=== PATIENT | female | born 1965 | race Caucasian/White ===

== ENCOUNTER 2020-05-28 08:04 | Outpatient (CLI) | payer OTHER, SELFPAY ==
--- NOTE | ~2020-05-28 | MM_ITS ---
EXAMINATION: MM screening [facility]ber BI w gillian HISTORY: Screening mammogram TECHNIQUE: Craniocaudal and mediolateral oblique 3-D tomosynthesis images were obtained and synthetic 2-D images were generated. CAD analysis was submitted and interpreted. COMPARISON: 10/05/2018, 08/26/2017 and 06/13/2016 bilateral digital screening mammogram examinations BREAST PARENCHYMAL COMPOSITION: There are scattered areas of fibroglandular density. FINDINGS: There is no evidence of suspicious mass, calcification, or architectural distortion to sugg est malignancy in either breast. There has been no suspicious interval change. IMPRESSION: 1. No mammographic evidence of malignancy. 2. Recommend routine screening mammography in one year. BI-RADS Category 1: Negative Reviewed, dictated and finalized at location A.
== END 2020-05-28 08:05 | disposition home or self-care (01) ==
LOC: ANHIMG 08:06
PROVIDERS: PCP Family Medicine; Visit Provider Obstetrics & Gynecology
DX: Z12.31 Encounter for screening mammogram for malignant neoplasm of breast (principal)
CPT/HCPCS: 77063; 77067

== ENCOUNTER 2020-05-28 08:10 | Outpatient (CLI) | payer OTHER, SELFPAY ==
--- NOTE | ~2020-05-28 | DEXA_ITS ---
Bone Density Report Name: Mechelle Ray Age: 54 Sex: Female Ethnicity: White Date of : 1965 Indication: postmenopausal; parental hip fracture; Referring Provider: BrodieRajeev Study: Bone densitometry was performed. Exam Date: May 28, 2020 Accession number: [id number] Bone Density: Region BMD T-score Z-score Classification AP Spine (L1, L3, L4) 1.122 0.6 1.7 Normal Femoral Neck (Left) 0.899 0.5 1.5 Normal Total Hip (Left) 1.076 1.1 1.8 Normal Total Hip Bilateral Avg 1.144 1.7 2.4 Normal Femoral Neck (Right) 0.967 1.1 2.1 Normal Total Hip (Right) 1.210 2.2 2.9 Normal World Health Organization criteria for BMD impression classify patients as: Normal (T-score at or above -1.0), Osteopenia (T-score between -1.0 and -2.5), or Osteoporosis (T-score at or below -2.5). 10-year Fracture Risk: FRAX not reported because: All T-scores for Spine Total, Hip Total, Femoral Neck at or above -1.0 Clinical Information Provided by Patient: Parent has had a hip fracture Has used the following medications: Vitamin D Patient maximum height was 67 Menopause Age: 45 No regular weight bearing exercise Drinks caffeinated beverages Onset of menses at age 14 Number of children 3 Impression: The patient has normal bone mass. The patient has risk factors, including: parental hip fracture. Discussion: BONE DENSITY IS ABOVE THE MINIMUM DESIRABLE LEVEL AT ALL SKELETAL SITES TESTED. This patient?s bone mineral density is above the minimum desirable level (T-score -1.0 or better) at all sites measured. The patient should follow a healthful lifestyle (good nutrition with adequate calcium and vitamin D, and appropriate weight-bearing exercise). Follow-Up: Consider repeating this study in 5 years or sooner if there is some new clinical indication. Reported by: TERESA on 05/28/2020 8:43:00 AM. Reviewed, dictated and finalized at location ADenzel KIRK
== END 2020-05-28 08:11 | disposition home or self-care (01) ==
LOC: ANHIMG 08:11
PROVIDERS: PCP Family Medicine; Visit Provider Internal Medicine Endocrinology, Diabetes & Metabolism
DX: N95.1 Menopausal and female climacteric states (principal)
CPT/HCPCS: 77080

== ENCOUNTER → 2020-12-21 13:44 | Outpatient (CLI) | payer OTHER, SELFPAY ==
--- NOTE | ~2020-12-21 | XR_ITS ---
EXAMINATION: XR shoulder LT min 2V DATE: 12/21/2020 14:17 INDICATION: Left shoulder pain. TECHNIQUE: 4 views of left shoulder were obtained. COMPARISON: None. FINDINGS: Bone alignment is normal. No fracture. Glenohumeral joint is normal. There is mild acromioc lavicular joint osteoarthritis. IMPRESSION: 1. Mild left acromioclavicular joint osteoarthritis. Reviewed, dictated and finalized at location A. [facility]
== END ==
PROVIDERS: PCP Family Medicine; Visit Provider Nurse Practitioner Family
DX: M25.512 Pain in left shoulder (principal); S49.92XA Unspecified injury of left shoulder and upper arm, initial encounter; M19.012 Primary osteoarthritis, left shoulder
CPT/HCPCS: 73030

== ENCOUNTER 2020-12-25 09:58 | Outpatient (CLI) | payer OTHER, SELFPAY ==
--- NOTE | ~2020-12-25 | US_ITS ---
EXAMINATION: US venous doppler [facility] DATE: 12/25/2020 10:33 INDICATION: Lower limb swelling. TECHNIQUE: Grayscale ultrasound images without and with compression and Doppler ultrasound images of the bilateral lower extremity veins were obtained. COMPARISON: None. FINDINGS: The visualized portions of right common femoral vein, profunda (deep) femoral vein, femoral vein, pop liteal vein, posterior tibial veins, peroneal veins, gastrocnemius vein and greater saphenous vein ou tflow are patent. The visualized portions of left common femoral vein, profunda femoral vein, femoral vein, popliteal v ein, posterior tibial veins, peroneal veins, gastrocnemius vein and greater saphenous vein outflow ar e patent. IMPRESSION: 1. No deep venous thrombosis in either lower limb. Reviewed, dictated and finalized at location A. /ENDANGERED SPECIES SPECIALIST
== END 2020-12-25 09:59 | disposition home or self-care (01) ==
PROVIDERS: PCP Family Medicine; Visit Provider Nurse Practitioner Family
DX: M79.89 Other specified soft tissue disorders (principal)
CPT/HCPCS: 93970

== ENCOUNTER 2020-12-26 08:53 | Emergency (ER) | payer OTHER, SELFPAY ==
--- NOTE | ~2020-12-26 | XR_ITS ---
XR knee RT 3V DATE: 12/26/2020 09:48 INDICATION: Fall. Pain and bruising of right knee, ankle TECHNIQUE: 3 views COMPARISON: None FINDINGS: There is mild osteoarthritis involving primarily the medial and patellofemoral compartments . No fracture or dislocation or joint effusion. No periosteal reaction or bone destruction. No radiopaq ue interarticular loose body or chondrocalcinosis. IMPRESSION: Osteoarthritis No fracture, dislocation or joint effusion Reviewed, dictated and finalized at location A. ING RELOCATION
--- NOTE | ~2020-12-26 | XR_ITS ---
XR tibia fibula RT 2V DATE: 12/26/2020 09:48 INDICATION: Fall. Pain and bruising of right knee and ankle TECHNIQUE: AP and lateral views COMPARISON: None FINDINGS: Plantar calcaneal enthesopathy. No fracture, dislocation, periosteal reaction or bone destruction of the tibia or fibula. Normal alignment at the knee and ankle joints. IMPRESSION: No fracture or dislocation Plantar calcaneal enthesopathy Reviewed, dictated and finalized at location A. APEUTIC RADIOLOGIST
[2020-12-26 08:57] VITALS: BP 169/95; PULSE 100; RESP 20; TEMP 36.1; O2SAT 98
--- NOTE | 2020-12-26 09:10 | PC.NURSE ---
Note abrasion to right lateral knee, and right lower extremity noted with swelling, bruising in different stages of healing, reddened right calf, and bruising to right foot, inner aspect. Pt doesn't remember injury exactly but assumes it occurred from fall treated previously.
--- NOTE | 2020-12-26 09:14 | ED.LOWEXIN ---
HPI - Extremity Injury (Lower) General Chief Complaint: Extremity Injury, Lower Stated Complaint: fall 1 week ago, right leg pain Time Seen by Provider: 12/26/20 09:13 History of Present Illness HPI Narrative: 55 yo female presents to the ED for leg pain. She fell 1 week ago while moving furniture. SHe sustained a laceration to the forehead and a contusion to the right knee/thigh. She was seen at that time and had the laceration repaired. Since then she developed more swelling and pain in the right lower leg. Her PCP scheduled outpatient US, which was negative for DVT. She came in today, because the pain is worse. Related Data Home Medications Medication Instructions Recorded Confirmed methimazole 5 mg tablet 5 mg PO DAILY 04/10/20 10/12/20 Allergies Allergy/AdvReac Type Severity Reaction Status Date / Time amoxicillin Allergy Unknown Rash Verified 12/28/20 15:45 clavulanic acid AdvReac Mild Rash Verified 12/28/20 15:45 [From Augmentin] AMOXICILLIN TRIHYDRATE Allergy Severe Rash, Uncoded 12/28/20 15:45 ITCHING POTASSIUM CLAVULANATE Allergy Unknown Hives / Uncoded 12/28/20 15:45 Red Face Review of Systems Review of Systems: All systems reviewed & are unremarkable except as noted in HPI and below Constitutional: Constitutional: Denies chills, Denies fever(s) and Denies weakness Eyes: Eyes: Reports no additional eye complaints Cardiovascular: Cardiovascular: Denies chest pain Respiratory: Respiratory: Denies dyspnea Gastrointestinal: Gastrointestinal: Reports no additional gastrointestinal complaints Musculoskeletal: Musculoskeletal: Denies back pain Neurologic: Denies numbness and Denies weakness [facility] Past Medical History Medical History Asthma BMI 40.0-44.9, adult Diastolic dysfunction, left ventricle Dyslipidemia Fall (on) (from) unspecified stairs and steps, initial encounter History of hypertension Left shoulder pain Morbid (severe) obesity due to excess calories Suture reaction Thyroid disease Family History Family History Father Family history of elevated blood lipids Cerebrovascular accident Family history of gastrointestinal disorder Family history of dementia Mother Carcinoma of colon Patient's mother is Grandparent Family history of kidney disease Family history of congestive heart failure Family history of heart disease in male family member before age 55 Sibling No problems noted. 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[employer] Exam Const: General: no acute distress and alert Orientation/consciousness: patient oriented x3 HENMT: Other: Bruising and healing forehead laceration Eyes: Pupils: Equal, round and reactive pupils present EOM: EOMs intact bilaterally Chest: Chest palpation & inspection: normal inspection of the chest Resp: Effort & Inspection: normal respiratory effort Auscultation: clear to auscultation bilaterally Cardio: Rate: regular rate Rhythm: regular rhythm Skin: Other: Bruising to right lower leg Neuro: General: patient oriented x3, moves all extremities, no focal motor deficits and CN's II-XI intact bilaterally Speech: normal speech Gait exam (Neuro): Normal gait present Extrem: Other: Right ankle tenderness and edema. Compartments soft Course Vital Signs Vital signs: Vital Signs Temperature 36.1 C L 12/26/20 08:57 Pulse Rate 100 12/26/20 08:57 Respiratory Rate 20 12/26/20 08:57 Blood Pressure 169/95 H 12/26/20 08:57 Pulse Oximetry 98 12/26/20 08:5
== END 2020-12-26 11:04 | disposition home or self-care (01) ==
PROVIDERS: Emergency Provider Emergency Medicine; PCP Family Medicine
DX: S80.11XA Contusion of right lower leg, initial encounter (principal); J45.909 Unspecified asthma, uncomplicated; E78.5 Hyperlipidemia, unspecified; I10 Essential (primary) hypertension; E66.01 Morbid (severe) obesity due to excess calories; Z68.41 Body mass index [BMI] 40.0-44.9, adult; E07.9 Disorder of thyroid, unspecified; W18.30XA Fall on same level, unspecified, initial encounter
CPT/HCPCS: 73562; 73590; 99284

== ENCOUNTER 2021-01-04 10:50 | Outpatient (CLI) | payer OTHER, SELFPAY | END 2021-01-04 10:51 | disposition home or self-care (01) | LOC: ANHCOVIDVC 10:50 | PROVIDERS: PCP Family Medicine | DX: Z23 Encounter for immunization (principal) | CPT/HCPCS: 0001A; 91300 ==

== ENCOUNTER 2021-01-25 10:46 | Outpatient (CLI) | payer OTHER, SELFPAY | END 2021-01-25 10:47 | disposition home or self-care (01) | LOC: ANHCOVIDVC 10:46 | PROVIDERS: PCP Family Medicine | DX: Z23 Encounter for immunization (principal) | CPT/HCPCS: 0002A; 91300 ==

== ENCOUNTER 2021-07-31 08:01 | Outpatient (CLI) | payer OTHER, SELFPAY ==
--- NOTE | ~2021-07-31 | MM_ITS ---
EXAMINATION: MM screening [facility] BI w gillian HISTORY: Screening mammogram TECHNIQUE: Craniocaudal and mediolateral oblique 3-D tomosynthesis images were obtained and synthetic 2-D images were generated. CAD analysis was submitted and interpreted. COMPARISON: 05/28/2020, 10/05/2018, 08/26/2017 BREAST PARENCHYMAL COMPOSITION: There are scattered areas of fibroglandular density. FINDINGS: There is no evidence of suspicious mass, calcification, or architectural distortion to sugg est malignancy in either breast. There has been no suspicious interval change. IMPRESSION: 1. No mammographic evidence of malignancy. 2. Recommend routine screening mammography in one year. BI-RADS Category 1: Negative Reviewed, dictated and finalized at location A.
== END 2021-07-31 08:02 | disposition home or self-care (01) ==
PROVIDERS: PCP Family Medicine; Visit Provider Obstetrics & Gynecology
DX: Z12.31 Encounter for screening mammogram for malignant neoplasm of breast (principal)
CPT/HCPCS: 77063; 77067

== ENCOUNTER 2022-10-08 07:19 | Outpatient (CLI) | payer OTHER, SELFPAY ==
--- NOTE | ~2022-10-08 | MM_ITS ---
EXAMINATION: MM screening eber BI w gillian HISTORY: Screening TECHNIQUE: Craniocaudal and mediolateral oblique 3-D tomosynthesis images were obtained and synthetic 2-D images were generated. CAD analysis was submitted and interpreted. COMPARISON: Comparison to multiple prior studies sequentially, with oldest reviewed study dated 11/08. BREAST PARENCHYMAL COMPOSITION: There are scattered areas of fibroglandular density. FINDINGS: There is no evidence of suspicious mass, calcification, or architectural distortion to sugg est malignancy in either breast. There has been no suspicious interval change. IMPRESSION: 1. No mammographic evidence of malignancy. 2. Recommend routine screening mammography in one year. BI-RADS Category 1: Negative Reviewed, dictated and finalized at location B. EE FARMER
== END 2022-10-08 07:20 | disposition home or self-care (01) ==
PROVIDERS: PCP Family Medicine; Visit Provider Obstetrics & Gynecology
DX: Z12.31 Encounter for screening mammogram for malignant neoplasm of breast (principal)
CPT/HCPCS: 77063; 77067

== ENCOUNTER 2022-10-28 01:55 | Day surgery (SDC) | payer OTHER, SELFPAY ==
[2022-07-29 10:19] VITALS: BMI 40.2
[2022-10-19 09:06] VITALS: BMI 40.2
--- NOTE | 2022-10-27 14:08 | PM.HPGS ---
History of Present Illness History of Present Illness Consent: Risks, benefits, and alternatives have been discussed and questions answered. Patient agrees to proceed with procedure. Chief complaint: hx colon polyps, family hx colon ca Narrative: Mechelle Ray is a 57 year old female referred for colon cancer screening. She has had polyps removed in the past, to removed 3 years ago. She also has a family history of colon cancer. Review of Systems Review of Systems: All systems reviewed & are unremarkable except as noted in HPI and below PMFSH Past Medical History Medical History Asthma BMI 40.0-44.9, adult Diastolic dysfunction, left ventricle Dyslipidemia Fall (on) (from) unspecified stairs and steps, initial encounter History of hypertension Hypothyroidism Left shoulder pain Morbid (severe) obesity due to excess calories Serous otitis media Suture reaction Thyroid disease Family History Family History Father Family history of elevated blood lipids Cerebrovascular accident Family history of gastrointestinal disorder Family history of dementia Mother Carcinoma of colon Patient's mother is Grandparent Family history of kidney disease Family history of congestive heart failure Family history of heart disease in male family member before age 55 Sibling No problems noted. 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[employer] Gender identity (if verbalized by the patient): Female Sexual Orientation (if Verbalized by the Patient): Straight or Heterosexual Spiritual care concerns: No Agree to blood products: Yes Meds Home Medications and Allergies Home Medications Medication Instructions Recorded Confirmed Type methimazole 5 mg tablet 5 mg PO DAILY 04/10/20 07/29/22 History atorvastatin 20 mg tablet See Rx Instructions .Route 06/27/22 07/29/22 Rx .COMPLEX #90 tabs loratadine 10 mg tablet (Claritin) 10 mg PO DAILY 07/29/22 07/29/22 History losartan 50 mg-hydrochlorothiazide See Rx Instructions .Route 08/03/22 10/19/22 Rx 12.5 mg tablet .COMPLEX #90 tabs Allergies Allergy/AdvReac Type Severity Reaction Status Date / Time amoxicillin Allergy Unknown Rash Verified 10/28/22 08:21 clavulanic acid AdvReac Mild Rash Verified 10/28/22 08:21 [From Augmentin] AMOXICILLIN TRIHYDRATE Allergy Severe Rash, Uncoded 10/28/22 08:21 ITCHING POTASSIUM CLAVULANATE Allergy Unknown Hives / Uncoded 10/28/22 08:21 Red Face Exam Const: General: alert Orientation/consciousness: patient oriented x3 Resp: Auscultation: clear to auscultation bilaterally Cardio: Rhythm: regular rhythm GI: GI Palp: Yes Soft to palpation and No Tenderness to palpation present (GI) Neuro: General: patient oriented x3 Assessment and Plan Assessment and plan (1) Screening for colon cancer: Code(s): Z12.11 - Encounter for screening for malignant neoplasm of colon Status: Acute Assessment and Plan: Colonoscopy with possible biopsy or polypectomy or cautery or injection of substances.
[2022-10-28 08:22] VITALS: BP 148/91; PULSE 86; RESP 18; TEMP 36.1; O2SAT 97
[2022-10-28] MEDS: LACTATED RINGERS 1,000 ML 150 ML IV CONT (08:33)
--- NOTE | 2022-10-28 08:43 | WPDANESEPPF ---
Anes - Initial Pre Proc Eval Procedure: Operation Date: 10/28/22 09:30 Proposed Procedures p Screening Colonoscopy - Scot Guerra MD Date/Time: 10/28/22 08:43 Surgeon: Scot Guerra MD Pre Op Diagnosis: hx colon polyps, family hx colon ca Patient Data Age: 57 Gender: F Height: 1.73 m Weight: 119.9 kg Last Vital Signs Temp 36.1 C L 10/28/22 08:22 Pulse 86 10/28/22 08:22 Resp 18 10/28/22 08:22 BP 148/91 H 10/28/22 08:22 Pulse Ox 97 10/28/22 08:22 O2 Del Method Room Air 10/28/22 08:22 Allergies Allergy/AdvReac Type Severity Reaction Status Date / Time amoxicillin Allergy Unknown Rash Verified 10/28/22 08:21 clavulanic acid AdvReac Mild Rash Verified 10/28/22 08:21 [From Augmentin] AMOXICILLIN TRIHYDRATE Allergy Severe Rash, Uncoded 10/28/22 08:21 ITCHING POTASSIUM CLAVULANATE Allergy Unknown Hives / Uncoded 10/28/22 08:21 Red Face Home Medications Medication Instructions Recorded Confirmed Type methimazole 5 mg tablet 5 mg PO DAILY 04/10/20 07/29/22 History atorvastatin 20 mg tablet See Rx Instructions .Route 06/27/22 07/29/22 Rx .COMPLEX #90 tabs loratadine 10 mg tablet (Claritin) 10 mg PO DAILY 07/29/22 07/29/22 History losartan 50 mg-hydrochlorothiazide See Rx Instructions .Route 08/03/22 10/19/22 Rx 12.5 mg tablet .COMPLEX #90 tabs Patient hx anesthesia problems: none Family hx anesthesia problems: none Results Review: All pre-operative results and documents have been reviewed as part of the pre-operative evaluation. [facility] Past Medical History Medical History Asthma BMI 40.0-44.9, adult Diastolic dysfunction, left ventricle Dyslipidemia Fall (on) (from) unspecified stairs and steps, initial encounter History of hypertension Hypothyroidism Left shoulder pain Morbid (severe) obesity due to excess calories Serous otitis media Suture reaction Thyroid disease Family History Family History Father Family history of elevated blood lipids Cerebrovascular accident Family history of gastrointestinal disorder Family history of dementia Mother Carcinoma of colon Patient's mother is Grandparent Family history of kidney disease Family history of congestive heart failure Family history of heart disease in male family member before age 55 Sibling No problems noted. 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[employer] Gender identity (if verbalized by the patient): Female Sexual Orientation (if Verbalized by the Patient): Straight or Heterosexual Spiritual care concerns: No Agree to blood products: Yes Anes - Eval Final PreProcedure Day of Procedure 10/28/22 08:43 Patient weight: morbidly obese Heart: regular rate and rhythm Lungs: clear to auscultation Airway: Mallampati scale class II Neurological: alert and oriented Last oral intake: >/= 8 hours ASA classification: III Emergent: no Anesthetic plan: proceed Anesthesia type and monitoring: general GIVS and standard monitoring Results Review: All pre-operative results and documents have been reviewed as part of the pre-operative evaluation. Informed Consent: The patient's anesthetic plan and its attendant risks and benefits were discussed with the patient/family/POA. Questions were solicited and answers provided to the satisfaction of the patient/family/POA.
[2022-10-28] MEDS: SIMETHICONE ORAL SUSPENSION 20 MG/0.3 ML 30 ML BOTTLE 0.6 ML IRRIGATION (09:25)
[2022-10-28 09:46] VITALS: BP 127/79; PULSE 69; RESP 24; O2SAT 95
[2022-10-28 09:56] VITALS: BP 123/78; PULSE 68; RESP 20; O2SAT 99
[2022-10-28 10:06] VITALS: BP 134/74; PULSE 72; RESP 19; O2SAT 99
== END 2022-10-28 10:15 | disposition home or self-care (01) ==
PROVIDERS: PCP Family Medicine; Visit Provider Internal Medicine Gastroenterology
PROC: 0DJD8ZZ Inspection of Lower Intestinal Tract, Via Natural or Artificial Opening Endoscopic (ICD-10-PCS; CPT 45378; principal; 2022-10-28 09:30)
DX: Z12.11 Encounter for screening for malignant neoplasm of colon (principal); K57.30 Diverticulosis of large intestine without perforation or abscess without bleeding; K63.5 Polyp of colon; D17.5 Benign lipomatous neoplasm of intra-abdominal organs; Z80.0 Family history of malignant neoplasm of digestive organs; I10 Essential (primary) hypertension; E78.5 Hyperlipidemia, unspecified; E07.9 Disorder of thyroid, unspecified; E66.01 Morbid (severe) obesity due to excess calories; Z68.41 Body mass index [BMI] 40.0-44.9, adult
CPT/HCPCS: 45385; 88305; J2704; J7120

== ENCOUNTER 2023-10-21 07:19 | Outpatient (CLI) | payer OTHER, SELFPAY ==
--- NOTE | ~2023-10-21 | MM_ITS ---
EXAMINATION: MM screening eber BI w gillian HISTORY: Screening mammogram TECHNIQUE: Craniocaudal and mediolateral oblique 3-D tomosynthesis images were obtained and synthetic 2-D images were generated. CAD analysis was submitted and interpreted. COMPARISON: 10/08/2022, 07/31/2021, 05/28/2020 bilateral screening mammogram examinations BREAST PARENCHYMAL COMPOSITION: There are scattered areas of fibroglandular density. FINDINGS: There is no evidence of suspicious mass, calcification, or architectural distortion to sugg est malignancy in either breast. There has been no suspicious interval change. IMPRESSION: 1. No mammographic evidence of malignancy. 2. Recommend routine screening mammography in one year. BI-RADS Category 1: Negative Reviewed, dictated and finalized at location A. RAM HOST
== END 2023-10-21 07:20 | disposition home or self-care (01) ==
LOC: ANHIMG 07:24
PROVIDERS: PCP Family Medicine; Visit Provider Obstetrics & Gynecology
DX: Z12.31 Encounter for screening mammogram for malignant neoplasm of breast (principal)
CPT/HCPCS: 77063; 77067

== ENCOUNTER 2024-03-11 13:12 | Outpatient (CLI) | payer OTHER, SELFPAY ==
--- NOTE | ~2024-03-11 | US_ITS ---
EXAMINATION: US carotid duplex BI DATE: 03/11/2024 13:28 INDICATION: Hyperlipidemia TECHNIQUE: Grayscale, color Doppler, and pulsed Doppler images of the cervical carotid arteries were obtained. The degree of vessel stenosis is placed in one of the following categories: normal, <50%, 5 0-69%, >=70% but less than near-occlusion, near-occlusion, or total occlusion. Note that percent sten osis relative to normal distal artery lumen diameter is indirectly measured from velocity measurement s as described by Jake, et al. Radiology 2003; 229:340-346. COMPARISON: None. FINDINGS: RIGHT: The right common carotid artery (CCA) peak systolic velocity (PSV) is 103 cm/s. The right internal ca rotid artery (ICA) PSV is 84 cm/s. The right ICA end-diastolic velocity (EDV) is 18 cm/s. The right I CA/CCA PSV ratio is 0.8. Grayscale and color Doppler images yield an estimate of <50% diameter reduct ion from plaque in the ICA. The external carotid artery (ECA) PSV is 104 cm/s. There is antegrade alondra w in the right vertebral artery. No significant interval change since thyroid ultrasound dated 2012 in a 4.7 cm TI RADS 4 solid hypoechoic wider than tall right thyroid nodule with smooth margins and without internal echogenic foci. LEFT: The left CCA PSV is 97 cm/s. The left ICA PSV is 109 cm/s. The left ICA EDV is 36 cm/s. The left ICA/ CCA PSV ratio is 1.1. Grayscale and color Doppler images yield an estimate of <50% diameter reduction from plaque in the ICA. The ECA PSV is 126 cm/s. There is antegrade flow in the left vertebral arter y. IMPRESSION: 1. <50% stenosis in the right internal carotid artery. 2. <50% stenosis in the left internal carotid artery. 3. No significant interval change since 2012 and a 4.7 cm TI RADS 4 right thyroid nodule with prior b enign biopsy on 01/02/2013 read as consistent with benign follicular nodule . Reviewed, dictated and finalized at location B. IMPRESSION: 1. <50% stenosis in the right internal carotid artery. 2. <50% stenosis in the left internal carotid artery. 3. No significant interval change since 2012 and a 4.7 cm TI RADS 4 right thyro id nodule with prior benign biopsy on 01/02/2013 read as consistent with benign follicular nodule .
== END 2024-03-11 13:13 ==
LOC: GOSHIMG 13:13
PROVIDERS: PCP Family Medicine; Visit Provider Physician Assistant Medical
DX: E78.5 Hyperlipidemia, unspecified (principal); I65.23 Occlusion and stenosis of bilateral carotid arteries
CPT/HCPCS: 93880

== ENCOUNTER 2025-07-24 14:46 | Outpatient (CLI) | payer OTHER, SELFPAY ==
--- NOTE | ~2025-07-24 | MM_ITS ---
EXAMINATION: MM screening eber BI w gillian HISTORY: Screening TECHNIQUE: Craniocaudal and mediolateral oblique 3-D tomosynthesis images were obtained and synthetic 2-D images were generated. CAD analysis was submitted and interpreted. COMPARISON: 10/08/2022 BREAST PARENCHYMAL COMPOSITION: There are scattered areas of fibroglandular density. FINDINGS: There is no evidence of suspicious mass, calcification, or architectural distortion in either breast to suggest malignancy. There has been no significant interval change. IMPRESSION: 1. No mammographic evidence of malignancy. Recommend routine screening mammography in one year. BI-RADS Category 1: Negative Reviewed, dictated and finalized at location Q. IMPRESSION: 1. No mammographic evidence of malignancy. Recommend routine screening mammogra phy in one year. BI-RADS Category 1: Negative
--- OUTSIDE RECORDS SUMMARY | 2025-07-24 17:17 | XMS_ITS | Clinical Summary ---
Author Organization [facility] Address [address] [place] [address] Care Team Providers Care Allergist/Pediatric Pulmonologist Name Role Phone Unavailable Primary Care Provider Unavailabl e Allergies Active Allergy Reactions Criticality Noted Date Comments Amoxicillin-Pot Clavulanate Rash High 08/05/20 24 Medications azithromycin (ZITHROMAX) 250 mg tablet TAKE 2 TABLETS BY MOUTH ON DAY 1, THEN TAKE 1 TABLET ONCE DAILY ON DAYS 2 THRU 5. 6 Tablet 12/20/2022 5:36 PM MANDOLIN REPAIR PERSON 3 Active triamcinolone acetonide (KENALOG) 0.5 % Cream APPLY TO THE AFFECTED AREA TWICE DAILY NEEDED FOR ITCHING. 15 Gram 07/06/2023 9:38 AM CDT 3 Active guaiFENesin (Mucinex) Tablet Extended Release 12hr Take by mouth. 20 Tablet 4 Active azithromycin (Zithromax Z-Keith) 250 mg tablet TAKE 2 TABLETS A SINGLE DOSE BY MOUTH ON DAY 1, THEN TAKE 1 TABLET ONCE DAILY ON DAYS 2 THRU 5. 6 Tablet 11/07/2024 7:23 PM MANDOLIN REPAIR PERSON 5 Active clobetasoL (TEMOVATE) 0.05 % Solution Apply to plaques of psoriasis on scalp twice daily as needed 50 mL 3 04/23/2025 7:13 PM CDT 5 Active ketoconazole (NIZORAL) 2 % Shampoo Use 1-3 times a week as needed to wash hair for scalp psoriasis. Leave on 5-10 minutes before rinsing out. 120 mL 11 07/15/2025 7:36 PM CDT 5 Active Encounters Date Type Department Care Team Description 06/03/2025 External Device Data [facility] ABSTRACTION Provider, Abstract from Last 3 Months Social History Tobacco Use Types Packs/Day Years Used Date Smoking Tobacco: Never Assessed Comments Unknown Sex and Gender Information Value Date Recorded Sex Assigned at Not on file Legal Sex Female 1:01 PM MANDOLIN REPAIR PERSON Gender Identity Not on file Sexual Orientation Not on file Plan of Treatment Health Maintenance Due Date Last Done Comments DTAP/TDAP/TD VACCINES (1 - Tdap) 1984 HPV/Cotest (21-29) 1986 CERVICAL CANCER SCREENING 1995 HPV/Cotest (30-65) 1995 PAP SMEAR 1995 BREAST CANCER SCREENING 2005 COLORECTAL SCREENING 2010 Colorectal Cancer Screening 2010 FIT-DNA Q 3 years 2010 FIT/FOBT Q 1 year 2010 Flex Sig/CT Colonography Q 5 years 2010 ZOSTER VACCINE (1 of 2) 2015 INFLUENZA VACCINE (#1) 2025 RSV VACCINE (60+ or ) (1 - 1-dose 75+ series) 2040 HEPATITIS B VACCINES Aged Out No long er eligible based on patient's age to complete this topic Insurance RX [employer] (INTERNAL) [facility]
--- OUTSIDE RECORDS SUMMARY | 2025-07-24 17:17 | XMS_ITS | Clinical Summary ---
Author Organization [facility] Address [address] [place] [id number] Care Team Providers Care Labor Conciliator Name Role Phone Unavailable Primary Care Provider Unavailabl e Allergies Active Allergy Reactions Criticality Noted Date Comments Amoxicillin Trihydrate 11/15/2005 11/15/2005-Augmentin hives Clavulanic Acid 11/15/2005 11/15/2005-Augmentin hives Medications benazepril-hydro chlorthiazide (LOTENSIN HCT) 10-12.5 MG per tablet Take 1 tablet by mouth daily Active atorvaSTATin (LIPITOR) 20 MG tablet Take 20 mg by mouth daily Active Immunizations Immunization Administration Dates Next Due Td 01/28/2000 Social History Tobacco Use Types Packs/Day Years Used Date Smoking Tobacco: Never Smokeless Tobacco: Never Alcohol Use Standard Drinks/Week Comments Never 0 (1 standard drink = 0.6 oz pur e alcohol) Alcohol Use Answer Date Recorded Frequency of Alcohol Consumption Not on file 04/14/2024 Average Number of Drinks Not on file 024 Frequency of Binge Drinking Not on file 03/30 Alcohol Use Status Never 04/14/2024 Average alcohol consumption Not on file 03/30 Comments No Sex and Gender Information Value Date Recorded Sex Assigned at Not on file Legal Sex Female 3:01 AM [employer] Gender Identity Not on file Sexual Orientation Not on file Last Filed Vital Signs Vital Sign Reading Time Taken Comments Blood Pressure 132/78 12/20/2020 1:40 PM [employer] Pulse 89 12/20/2020 1:40 PM [employer] Temperature 36.7 C (98 F) 12/20/2020 11:32 AM [employer] Respiratory Rate 18 12/20/2020 1:40 PM [employer] Oxygen Saturation 99% 12/20/2020 1:40 PM [employer] Inhaled Oxygen Concentration - - Weight 122.5 kg (270 lb) 12/20/2020 11:32 AM [employer] Height 172.7 cm (5' 8) 12/20/2020 11:32 AM [employer] Body Mass Index 41.05 12/20/2020 11:32 AM [employer] Plan of Treatment Health Maintenance Due Date Last Done Comments HIV Screening 1965 Hepatitis C Screening ages 1 8 to 79 once 1965 MMR VACCINES (1 of 1 - Stand giuseppe series) 1966 YEARLY WELLNESS EXAM 1968 DEPRESSION SCREENING 1977 ADULT TETANUS 1984 CERVICAL CANCER SCREENING 1986 BREAST CANCER SCREENING 2005 Colon Cancer Screening 2010 LIPID TESTING 2010 Zoster Vaccine (Recombinant Vaccine) (1 of 2) 2015 Influenza Vaccine 05/30/2025 COVID-19 Immunization (1 - 2 024-25 season) 2025 RSV Vaccines (1 - 1-dose 75+ series) 2040 HEPATITIS A VACCINES Aged Out No long er eligible based on patient's age to complete this topic HEPATITIS B VACCINES Aged Out No long er eligible based on patient's age to complete this topic HIB VACCINES Aged Out No longer eligi ble based on patient's age to complete this topic HPV VACCINES Aged Out No longer eligi ble based on patient's age to complete this topic IPV VACCINES Aged Out No longer eligi ble based on patient's age to complete this topic MENINGOCOCCAL VACCINE Aged Out No larry carlos eligible based on patient's age to complete this topic Meningococcal B Vaccine Aged Out No l onger eligible based on patient's age to complete this topic Pneumococcal Vaccine: Peds t o 50 & At-Risk Patients Aged Out No longer eligible b ased on patient's age to complete this topic ROTAVIRUS VACCINES Aged Out No longer eligible based on patient's age to complete this topic Insurance [employer] [facility], [facility]
--- OUTSIDE RECORDS SUMMARY | 2025-07-24 17:17 | XMS_ITS | Clinical Summary ---
Author Organization [facility] Address [address] [place] [id number] Care Team Providers Care Car Scrubber Name Role Phone Edis Quinn MD Primary Care Provider [phone] Allergies Active Allergy Reactions Criticality Noted Date Comments Amoxicillin Rash Reaction: Rash, Clavulanic Acid Other (See comments) Low 11/15/2005 11/15/2005-Augmentin hives Potassium Rash Reaction: Rash, Medications losartan-hydroC HLOROthiazide (HYZAAR) 50-12.5 mg per tablet take 1 tablet by oral route every day 0 0 7 Active atorvastatin (LIPITOR) 20 mg tablet take 1 tablet by oral route every day 0 0 7 Active triamcinolone (KENALOG) 0.5 % cream Apply topically 2 (two) times a day 3 Active loratadine (CLARITIN) 10 mg tablet Take 1 tablet (10 mg total) by mouth daily Active aspirin 81 mg enteric coated tablet Take 1 tablet (81 mg total) by mouth daily Active methIMAzole (TAPAZOLE) 5 mg tablet TAKE 1 TABLET BY MOUTH EVERY MONDAY- Y 48 tablet 3 4 Active Active Problems Problem Noted Date Diagnosed Date Menopausal state 01/14/2020 Assessment & Plan (01/14/2020 1:49 PM CDT): Bone density loss discussed DEXA requested BMI 40.0-44.9, adult 01/08/2019 Morbid obesity 01/08/2019 Assessment & Plan (01/08/2019 2:25 PM CDT): Low calorie diet, exercise were discussed Toxic thyroid nodule 06/20/2017 Assessment & Plan (10/16/2024 1:36 PM REAL ESTATE INTERN): Chronic problem, clinically stable. Continue MMI. Update labs, will adjust dose if indicated. Assessment & Plan (09/05/2023 1:23 PM REAL ESTATE INTERN): Thyroid function tests requested. Will adjust dose of Tapazole accordingly Assessment & Plan (09/06/2022 1:27 PM REAL ESTATE INTERN): Thyroid function tests requested. Will adjust dose of Tapazole accordingly Assessment & Plan (08/31/2021 1:26 PM CDT): Thyroid function tests requested. Will adjust dose of Tapazole accordingly Assessment & Plan (03/11/2021 4:15 PM CDT): Thyroid function tests requested. Will adjust dose of Tapazole accordingly Assessment & Plan (08/18/2020 4:07 PM CDT): Thyroid function tests requested. Will adjust dose of Tapazole accordingly Assessment & Plan (01/14/2020 1:47 PM CDT): Will check thyroid function tests. Will adjust dose of Tapazole accordingly Patient is aware of the need to call the office should he/she have any fever, chills or signs of infection, while taking Tapazole Not interested in HURST ablation. Assessment & Plan (07/16/2019 1:35 PM CDT): Will check thyroid function tests. Will adjust dose of Tapazole accordingly Assessment & Plan (01/08/2019 2:25 PM CDT): Check thyroid function tests. Adjust dose of Tapazole accordingly Assessment & Plan (03/20/2018 12:03 PM CDT): Continue Tapazole ( Methimazole ), 5 mg daily Have blood tests done in 2 months. Follow up in 6 months. Assessment & Plan (10/17/2017 2:42 PM REAL ESTATE INTERN): Lower Tapazole to 5 mg daily Check TFT's Will call with any other changes Recheck in 2 m F/u in 4 m Assessment & Plan (06/20/2017 3:32 PM CDT): Lower Tapazole, 5 mg 5 days a week Recheck levels in 2 m F/u in 4 m Will try to lower dose of Tapazole. If not possible, will consider HURST ablation. Medical History Medical History Date Comments Hypertension Hypertension Hx Other Medical hyperlipidemia; Comments: [facility] 12/29/2016 - Disease of thyroid gland Thyroid disease Family History Medical History Relation Name Comments Colon cancer Mother 2 Cancer, colon; Cause of : Cancer, colon Relation Name Status Comments Mother 1 Mother 2 Social History Tobacco Use Types Packs/Day Years Used Date Smoking Tobacco: Never Smokeless Tobacco: Never Alcohol Use Standard Drinks/Week Comments No 0 (1 standard drink = 0.6 oz pur e alcohol) PHQ-2 Answer Date Recorded PHQ-2 Total Score (If total score is 3 or more points, staff should administer the PHQ-9) 0 10/16/2024 Comments Unknown Sex and Gender Information Value Date Recorded Sex Assigned at Not on file Legal Sex Female 8:01 AM CDT Gender Identity Not on file Sexual Orientation Not on file Obstetrics History Last Filed Vital Signs Vital Sign Reading Time Taken Comments Blood Pressure 142/92 10/16/2024 1:16 PM REAL ESTATE INTERN Pulse 86 10/16/2024 1:16 PM REAL ESTATE INTERN Temperature 36.8 C (98.3 F) 07/13/2023 8:16 AM CDT Respiratory Rate 16 09/05/2023 1:03 PM REAL ESTATE INTERN Oxygen Saturation - - Inhaled Oxygen Concentration - - Weight 127.2 kg (280 lb 6.4 oz) 10/16/2024 1:16 PM REAL ESTATE INTERN Height 170.2 cm (5' 7.01) 10/16/2024 1:16 PM CS T Body Mass Index 43.91 10/16/2024 1:16 PM REAL ESTATE INTERN Plan of Treatment Health Maintenance Due Date Last Done Comments Breast Cancer Screening-Mammogram 1965 Cervical Cancer Screening 1965 Colon Cancer Screening-Colonoscopy 1965 Hepatitis C Screening 1965 DTaP/Tdap/Td Vaccine (1 - Tdap) 1976 Hepatitis B Screening 1983 Regular Well Visit/Exam 18-64 1983 Zoster Vaccine (1 of 2) 2015 Influenza Vaccine (#1) 2025 10/31/2014, 2011 Depression Screening 10/16/2025 10/16/2024, 09/06/2022, 08/31/2021, Additional history exists Pneumococcal vaccine <65 Aged Out No longer eligible based on patient's age to complete this topic Insurance [facility] Care Teams Car Scrubber Relationship Specialty Start Date End Date Edis Quinn MD [facility] - General 01/27/17
== END 2025-07-24 14:47 | disposition home or self-care (01) ==
LOC: ANHFOHIMG 14:48
PROVIDERS: PCP Family Medicine; Visit Provider Obstetrics & Gynecology
DX: Z12.31 Encounter for screening mammogram for malignant neoplasm of breast (principal)
CPT/HCPCS: 77063; 77067